=== PATIENT | female | born 2005 | race Two or more races ===

== ENCOUNTER → 2024-07-18 | Outpatient (CLI) | payer MEDICAID, SELFPAY ==
--- NOTE | 2024-07-18 15:13 | XR_ITS ---
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
== END | disposition home or self-care (01) ==
DX: M79.89 Other specified soft tissue disorders (principal); S89.91XS Unspecified injury of right lower leg, sequela; X58.XXXS Exposure to other specified factors, sequela
CPT/HCPCS: 73552

== ENCOUNTER → 2024-11-08 | Outpatient (CLI) | payer MEDICAID, SELFPAY ==
--- NOTE | 2024-11-08 11:30 | XR_ITS ---
Examination: Ultrasound soft tissue extremity right lateral thigh TECHNIQUE: Grayscale sonographic images soft tissue right lateral thigh Date and time: November 08, 2024 1155 hours INDICATIONS: Right lateral thigh lump after falling 16 months ago FINDINGS: Cystic areas at the area concern 3 x 3 mm, 6 x 4 mm No mass or hematoma IMPRESSION: No thigh mass or hematoma
== END | disposition home or self-care (01) ==
DX: S89.91XD Unspecified injury of right lower leg, subsequent encounter (principal); W19.XXXD Unspecified fall, subsequent encounter
CPT/HCPCS: 76882

== ENCOUNTER → 2025-01-31 | Outpatient (CLI) | payer MEDICAID, SELFPAY ==
--- NOTE | 2025-01-31 15:16 | XR_ITS ---
EXAMINATION: Right femur 2 views TECHNIQUE: AP lateral right femur 2 views Date and time: January 31, 2025, 1726 hours INDICATIONS: Patient fell 2 years ago with injury of the femur, femur pain. FINDINGS: No right hip fracture or hip dislocation Sclerotic focus 33 mm in the distal shaft of the femur on the medial side No andressa cortical bone obstruction IMPRESSION: 33 mm sclerotic focus in the distal shaft of the femur on the medial side, most consistent with fibrous cortical cyst Recommend 3-month follow-up femur films
== END | disposition home or self-care (01) ==
LOC: CDIM 15:05
PROVIDERS: PCP Internal Medicine
DX: M89.8X5 Other specified disorders of bone, thigh (principal)
CPT/HCPCS: 73552